=== PATIENT | male | born 1995 | race Caucasian/White ===

== ENCOUNTER 2017-09-24 08:52 | Day surgery (SDC) | payer OTHER ==
[~2017-09-24] VITALS: Ht 172.7 cm; Wt 67.7 kg
[2017-09-24 09:37] VITALS: BP 139/70; PULSE 75; TEMP 98.2
[2017-09-24 11:30] VITALS: BP 123/74; PULSE 71; TEMP 98.3
[2017-09-24 11:45] VITALS: BP 115/76; PULSE 57
== END 2017-09-24 12:29 | disposition home or self-care (01) ==
LOC: SDCO 08:52
DX: K29.30 Chronic superficial gastritis without bleeding (principal); K21.9 Gastro-esophageal reflux disease without esophagitis; K64.0 First degree hemorrhoids
CPT/HCPCS: OP; J2250; J2704; J3010; J7120